=== PATIENT | female | born 1955 ===

== ENCOUNTER → 2021-12-28 | Outpatient (CLI) | payer SELFPAY | LOC: LAB SHORT 12:12 | DX: D36.17 Benign neoplasm of peripheral nerves and autonomic nervous system of trunk, unspecified (principal); D36.14 Benign neoplasm of peripheral nerves and autonomic nervous system of thorax | CPT/HCPCS: 88305 ==

== ENCOUNTER → 2024-05-13 | Outpatient (CLI) | payer MEDICARE | LOC: PLD 07:09 → LAB SHORT 07:09 | DX: D48.5 Neoplasm of uncertain behavior of skin (principal) | CPT/HCPCS: 88312 ==